=== PATIENT | female | born 1990 | race Caucasian/White ===

== ENCOUNTER 2016-05-24 13:06 | Emergency (ER) ==
[2016-05-24 13:15] VITALS: BP 112/86
--- NOTE | 2016-05-24 13:38 | PROVIDER DOCUMENTATION ---
HPI-Female /OB/Breast - General Chief Complaint: General Adult Stated Complaint: REQUESTING ULTRASOUND Time Seen by Provider: 05/24/16 13:17 Allergies/Adverse Reactions: Patient Allergies Allergy/AdvReac Type Severity Reaction Status Date / Time diphenhydramine HCl * AdvReac "irritated Verified 05/24/16 13:15 [From Benadryl] ketorolac tromethamine * AdvReac "irritated" Verified 05/24/16 13:15 [From Toradol] Home Medications: Home Medication List Medication Instructions Recorded Confirmed Last Taken Type Vit #76/Iron,Carb/FA 1 tab PO DAILY 05/24/16 05/24/16 05/23/16 History [Prenatabs Rx Tablet] - History of Present Illness-Female /OB Nature of Presenting Problem: Pt was seen at [facility] today and was told to come to ER for US to r/o ectopic . Had positive urine preg test at home last wk of March and had it confirmed at [facility] on May 03. Went today for US but was told there was nothing in uterus, denies vaginal bleeding. Had intercourse yesterday that was not painful, had no vaginal bleeding. [id number]--brk miscarriage at 19 wks with first . Does patient report she is ?: Yes Location of complaint: reports: unknown Quality of Pain: reports: none Severity in ED: reports: mild Context/Activities at Onset: reports: none Vaginal Symptoms: reports: no symptoms Vaginal Bleeding Amount: None Urinary Symptoms: reports: no symptoms Related Symptoms: reports: no symptoms (no IUP found on ultrasound) Leakage of Fluid: none Sexual intercourse history: reports: Less Than 2 Months Ago, Single Partner Associated Symptoms: reports: anxiety, nausea, other (breast tenderness). denies: muscle aches, vomiting, weakness Review of Systems - Adult - REVIEW OF SYSTEMS - ADULT Constitutional: denies: chills, fever Cardiovascular: reports: no symptoms reported Respiratory: reports: no symptoms reported Gastrointestinal: reports: nausea. denies: vomiting Genitourinary: reports: see HPI Neurological: denies: numbness, paresthesia All Other Systems: Reviewed and Negative Past History - Adult - PAST MEDICAL HISTORY-ADULT Review of Records: reports: Old Records Reviewed, Nursing Assessment Review, Medications Reviewed Major Childhood Illnesses: reports: denies history Obstetrical/Gynecological: reports: - spont/elective ([id number]-- miscarriage at 19wks) Genitourinary: reports: denies history Musculoskeletal: reports: denies history Neurological: reports: headaches/migraines Endocrine/Immune: reports: denies history Other Conditions: reports: denies history - PRIOR SURGERIES/PROCEDURES Surgical/Procedure History: reports: none - PRIOR HOSPITALIZATIONS Prior Hospitalizations: reports: none - IMMUNIZATION STATUS Childhood Immunizations: See Nurse Assessment Flu Vaccine: See Nurse Assessment - FAMILY HISTORY Family History: reviewed, not pertinent - SOCIAL HISTORY Smoking: less than 1 pack/day Provider spent 3-5 mins advising pt. on dangers of tobacco.: Discussed manners to quit use, and f/u contacts for add'l counseling. Living Situation: family Physical Exam-General - PHYSICAL EXAM-ADULT Initial Vital Signs Reviewed: Yes - CONSTITUTIONAL General Appearance: appears well, anxious - EYES Eyes: PERRL/EOMI, pink conjunctivae - HEAD, EARS, NOSE, MOUTH & THROAT HENMT: normocephalic/atraumatic, moist mucous membranes - NECK Neck: non-tender, full range of motion, supple - RESPIRATORY Respiratory: chest non-tender, lungs clear, normal breath sounds - CARDIOVASCULAR Cardiovascular: regular rate, rhythm, no edema - MUSCULOSKELETAL Back Exam: normal inspection, no CVA tenderness, no vertebral tenderness Extremity: normal gait, normal inspection - SKIN Integumentary: normal color, normal turgor, warm/dry - NEUROLOGIC Neurologic: grossly normal, no motor/sensory deficits - PSYCHIATRIC Psych/Mental Status: normal thought content, normal thought process, oriented x 3, anxious Progress - ULTRASOUND (By Radiology) 1 US Study: Pelvic Impression: Abnormal US Results: 6w6d IUP with no heart rate, suspect demise - CONSULTS/PCP/HOSPITALIST Notification #1 *Consult/PCP/Hospitalist*: Screws Time Discussed: 14:35 Reason/Comments: follow up in office to ensure uterus sheds the products of conception Departure - Departure Time of Disposition Order: 14:41 DIAGNOSIS: demise Disposition: HOME 01 Certified Medical Emergency: Emergent Condition: Stable Additional Instructions: Recommend complete pelvic rest. ED Follow Up Instructions: You have been treated by a care provider in the Emergency Department. These instructions are being provided to you so you can have an understanding of how to care for yourself upon discharge. Upon discharge from the Emergency Department, you are responsible for making arrangements for follow-up care by a physician of your choice. Take all prescribed medications as directed. Return to the Emergency Department immediately for any new or worsening symptoms. You may call the Physician Referral phone number at [phone] to obtain a list of Physicians who are taking new patients. Referrals: None,PCP [Primary Care Provider] - Evelyn Yoo MD [STAFF PHYSICIAN] - Attestation - Physician/ GABRIELLA Attestation Patient care was provided by Advanced Practice Provider:: Yes Advanced Practice Provider:: Karla Martinez Advanced Practice Provider documentation review:: The Mid-level provider documentation, treatment plan and medical decision making was reviewed by the physician who agrees with all treatment and medical decision making by the MLP.
--- NOTE | 2016-05-24 15:05 | Diag Imaging Result Document ---
PROCEDURE NAME: US OBS COMPLETE < 14 WKS - 05/24/2016 TRANSVAGINAL PELVIC ULTRASOUND: FINDINGS: There is an early intrauterine with an estimated gestational age of 6 weeks and 6 days plus or minus 4 days. However, no heart rate is detected. The cervix is closed. The uterus measures 7.2 x 5.5 x 4.9 cm. The right ovary measures 3.6 cm in length. The left ovary measures 3.4 cm in length. Blood flow is documented to both ovaries. No adnexal mass. No free fluid. IMPRESSION: Early intrauterine , but no heart rate. I suspect there is demise. A preliminary report was given at 2:26 p.m..
== END 2016-05-24 15:04 | disposition home or self-care (01) ==
LOC: P.ED 13:06
DX: O02.1 Missed abortion (principal); R11.0 Nausea; N64.4 Mastodynia; F17.210 Nicotine dependence, cigarettes, uncomplicated; Z71.6 Tobacco abuse counseling
CPT/HCPCS: 76801